=== PATIENT | female | born 1980 | race Caucasian/White ===

== ENCOUNTER 2022-03-08 15:17 | Outpatient (CLI) | payer BC, SELFPAY ==
--- NOTE | 2022-03-08 15:34 | XR_ITS ---
WS: [id number] XR chest 2V* [id number] REASON FOR EXAM: DYSPNEA, ACUTE COUGH FINDINGS: The heart and mediastinum are within normal limits. Calcified granulomatous disease in both hemithoraces. No acute pulmonary parenchymal or pleural abnormality is identified. Old healed rib fractures on the right. XR/XR chest 2V* [id number] IMPRESSION: No acute chest abnormality.
== END 2022-03-08 15:18 | disposition home or self-care (01) ==
PROVIDERS: PCP Family Medicine; Visit Provider Family Medicine
DX: R06.00 Dyspnea, unspecified (principal); R05.1 Acute cough
CPT/HCPCS: 71046

== ENCOUNTER 2022-11-06 20:00 | Emergency (ER) | payer BC, MEDICAID, SELFPAY ==
--- NOTE | 2022-11-06 20:03 | XRR_ITS ---
PROCEDURE INFORMATION: Exam: XR Chest Exam date and time: 11/06/2022 9:38 PM Age: 42 years old Clinical indication: Shortness of breath; Chest pressure; Patient HX: C/O chest pain with SOB. ; Additional info: Cp TECHNIQUE: Imaging protocol: Radiologic exam of the chest. Views: 1 view. COMPARISON: CR XR chest 2V* [id number] 03/08/2022 3:37 PM FINDINGS: Lungs: Streaky airspace opacities noted in the lower lungs, right greater than left, concerning for pneumonia. Atelectasis can have this appearance. Pleural spaces: Unremarkable. No pleural effusion. No pneumothorax. Heart/Mediastinum: Stable cardiomediastinal silhouette. Bones/joints: Old healed fracture deformities are again noted in the right lower lateral ribcage. XR/XR chest 1V portable [id number] IMPRESSION: Bibasilar atelectasis versus pneumonia. Clinical correlation is recommended.
--- NOTE | 2022-11-06 20:03 | ECG_ITS ---
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 Measurements Intervals [place] Rate: 92 P: 38 MN: 138 QRS: 38 QRSD: 82 T: 22 QT: 333 QTc: 412 Interpretive Statements SINUS RHYTHM NONSPECIFIC T-WAVE ABNORMALITY No previous ECG available for comparison Electronically Signed On 11-07-2022 14:21:34 COTTON SAMPLER by Orlando Shukla M.D. [email or web address]/store/[id number]
[2022-11-06 20:08] VITALS: BP 129/87; PULSE 87; RESP 17; TEMP 36.6; O2SAT 99; BMI 34.6
[2022-11-06 20:43] LABS: Basophils # 0.1 10^3/uL (0.0-0.1); Basophils % 0.9 %; Eosinophils # 0.4 10^3/uL (0.0-0.8); Eosinophils % 3.9 %; Hematocrit 41.3 % (37.0-47.0); Hemoglobin 13.4 g/dL (11.5-15.3); Lymphocytes # 3.2 10^3/uL (0.8-4.8); Lymphocytes % 29.1 %; Mean Corpuscular HGB Conc 32.4 g/dL (30.0-36.0); Mean Corpuscular Hemoglobin 30.5 pg (28.0-34.0); Mean Corpuscular Volume 94.1 fl (81-99); Mean Platelet Volume 9.4 fL (7.4-10.4); Monocytes # 1.2 10^3/uL (0.2-0.9); Monocytes % 10.3 %; Neutrophils # 6.19 10^3/uL (1.8-7.7); Neutrophils % 55.5 %; Nucleated Red Blood Cells % 0 %; Platelet Count 364 10^3/cmm (130-400); Red Blood Count 4.39 10^6/uL (4.1-5.3); Red Cell Distribution Width 13.2 % (12.1-15.1); White Blood Count 11.2 10^3/uL (4.0-10.0)
[2022-11-06 21:02] LABS: Troponin(5th) Baseline 6 ng/L (0-10)
[2022-11-06 21:03] LABS: Alanine Aminotransferase 26 U/L (0-33); Albumin Level 4.3 g/dL (3.5-5.2); Alkaline Phosphatase 87 U/L (35-105); Aspartate Amino Transferase 25 U/L (0-32); Blood Urea Nitrogen 16 mg/dL (6-20); Calcium 9.3 mg/dL (8.5-10.5); Carbon Dioxide 26 mmol/L (22-29); Chloride 99 mmol/L (98-107); Globulin 2.8 g/dL (1.3-4.6); Glomerular Filtration Rate 69.3 mL/min (90-130); Glucose 137 mg/dL (65-115); Osmolality Calculated 289 mOsm/kg (285-295); Sodium 138 mmol/L (136-145); Total Bilirubin 0.2 mg/dL (0.15-1.2); Total Protein 7.1 g/dL (6.6-8.7)
--- NOTE | 2022-11-06 22:03 | ECG_ITS ---
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 Measurements Intervals [place] Rate: 77 P: 42 PA: 141 QRS: 41 QRSD: 82 T: 43 QT: 368 QTc: 418 Interpretive Statements SINUS RHYTHM NONSPECIFIC T-WAVE ABNORMALITY Compared to ECG 11/06/2022 20:19:10 No significant changes Electronically Signed On 11-07-2022 16:19:31 ROTARY RIG ENGINE OPERATOR by Orlando Shukla M.D. [email or web address] behavioral healthcare of mississippiOricula Therapeuticsmercy health perrysburg hospitalLogan/store/OM/[id number]/[id number]
--- NOTE | 2022-11-06 22:11 | ED_ITS ---
HPI - Chest Pain General: Chief Complaint: Chest Pain Stated Complaint: CP, SOB, dizzy Time Seen by Provider: 11/06/22 22:10 History of Present Illness: 42-year-old female comes in today for complaints of some chest discomfort along with shortness of breath and dizziness. Patient was at work when this started. Patient denied any recent illness. Patient is a chronic smoker and coughs routinely. 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 Patient has a history of depression, anxiety disorder, nicotine dependence, and alcohol use disorder. Associated symptoms: Reports dyspnea; Deny nausea or vomiting Review of Systems Const: Reports: malaise Card: Reports: chest pain Resp: Reports: dyspnea GI: Denies: nausea, vomiting, diarrhea or constipation Musc: Denies: extremity pain Skin/Breast: Denies: rash Neuro: Reports: dizziness; Denies: headache(s) Psych: Denies: depression PFSH ED PFSH: Social History (Updated 01/26/21 @ 13:56 by Stevie Stevens LPN) Smoking and tobacco status: current every day smoker cigarettes Packs smoked per day: 1 Years cigarettes smoked: 8 Quit status (tobacco): has tried quititng Number of times tried to quit tobacco: 3 Second hand smoke exposure: No Current gender identity: Female Physical Exam Const: COMMON NORMALS: alert HENMT: COMMON NORMALS: normocephalic HEAD & SCALP: normocephalic THROAT: posterior oropharynx abnormal erythema Neck/C-Spine: COMMON NORMALS: full ROM Resp: COMMON NORMALS: normal respiratory effort AUSCULTATION: crackles (Bilateral bases) and rhonchi Cardio: COMMON NORMALS: regular rate RATE: regular rate Extremity: COMMON NORMALS: normal to inspection Neuro: SENSORIUM/ORIENTATION: Yes alert Skin: COMMON NORMALS: turgor normal GENERAL SKIN EXAM: turgor normal Course Vital Signs: Vital signs: Vital Signs Temperature 97.8 F 11/06/22 20:08 Pulse Rate 83 11/06/22 22:19 Respiratory Rate 18 11/06/22 22:19 Blood Pressure 115/92 11/06/22 22:19 Pulse Oximetry 96 11/06/22 22:19 Oxygen Delivery Me thod 11/06/22 22:19 MDM - Chest Pain Medical Decision Making 42-year-old female comes in today with some chest pressure, shortness of breath, and lightheadedness. On exam patient has rhonchi and crackles in the bases. Vital signs are normal. Skin is warm and dry. No edema is noted in the extremities. Differential diagnosis includes ACS, pneumonia, anxiety. Chest x- ray noted some bilateral lower lung atelectasis versus pneumonia. CBC had a white count of 11,000. Troponin was 6. EKG showed a sinus rhythm with no ectopy or ST elevation. Remainder of labs were unremarkable. Reviewed exam with patient recommended treatment for pneumonia. Patient was given doxycycline and a dose of dexamethasone in the ER. Patient was recommended continue doxycycline 100 mg twice a day for total of 7 days. Patient reported understanding and agreed to plan. Lab Data 11/06/22 20:25 11/06/22 20:25 Radiology Impressions Chest X-Ray 11/06/22 20:03 IMPRESSION: Bibasilar atelectasis versus pneumonia. Clinical correlation is recommended. Laboratory Results WBC 11.2 10^3/uL (4.0-10.0) H 11/06/22 20: RBC 4.39 10^6/uL (4.1-5.3) 11/06/22 20:25 Hgb 13.4 g/dL (11.5-15.3) 11/06/22 20:25 Hct 41.3 % (37.0-47.0) 11/06/22 20: MCV 94.1 fl (81-99) 11/06/22 20:25 MCH 30.5 pg (28.0-34.0) 11/06/22 20: MCHC 32.4 g/dL (30.0-36.0) 11/06/22 20:25 RDW 13.2 % (12.1-15.1) 11/06/22 20:25 Plt Count 364 10^3/cmm (130-400) 11/06/22 20: MPV 9.4 fL (7.4-10.4) 11/06/22 20:25 Neut % (Auto) 55.5 % 11/06/22 20:25 Lymph % (Auto) 29.1 % 11/06/22 20:25 Oliver % (Auto) 10.3 % 11/06/22 20:25 Eos % (Auto) 3.9 % 11/06/22 20:25 Baso % (Auto) 0.9 % 11/06/22 20:25 Neut # (Auto) 6.19 10^3/uL (1.8-7.7) 11/06/22 20:25 Lymph # (Auto) 3.2 10^3/uL (0.8-4.8) 11/06/22 20:25 Oliver # (Auto) 1.2 10^3/uL (0.2-0.9) H 11/06/22 20:25 Eos # (Auto) 0.4 10^3/uL (0.0-0.8) 11/06/22 20:25 Baso # (Auto) 0.1 10^3/uL (0.0-0.1) 11/06/22 20:25 Nucleated RBC % (auto) 0 % 11/06/22 20:25 Nucleated RBCs # 0.0 /100WBC 11/06/22 20:25 Sodium 138 mmol/L (136-145) 11/06/22 20:25 Potassium 4.0 mmol/L (3.5-5.1) 11/06/22 20:25 Chloride 99 mmol/L (98-107) 11/06/22 20:25 Carbon Dioxide 26 mmol/L (22-29) 11/06/22 20:25 Anion Gap 17.0 (5-19) 11/06/22 20:25 BUN 16 mg/dL (6-20) 11/06/22 20:25 Creatinine 0.9 mg/dL (0.5-0.9) 11/06/22 20:25 GFR Calculation 69.3 mL/min (90-130) L 11/06/22 20:25 Glucose 137 mg/dL (65-115) H 11/06/22 20:25 Calculated Osmolality 289 mOsm/kg (285-295) 11/06/22 20:25 Calcium 9.3 mg/dL (8.5-10.5) 11/06/22 20:25 Total Bilirubin 0.2 mg/dL (0.15-1.2) 11/06/22 20:25 AST 25 U/L (0-32) 11/06/22 20:25 ALT 26 U/L (0-33) 11/06/22 20:25 Alkaline Phosphatase 87 U/L (35-105) 11/06/22 20:25 Troponin T Baseline 6 ng/L (0-10) 11/06/22 20:25 Total Protein 7.1 g/dL (6.6-8.7) 11/06/22 20:25 Albumin 4.3 g/dL (3.5-5.2) 11/06/22 20:25 Globulin 2.8 g/dL (1.3-4.6) 11/06/22 20:25 Discharge Plan Discharge Patient Disposition: Home Clinical Impression: Pneumonia Qualifiers: Pneumonia type: due to unspecified organism Laterality: bilateral Lung location: lower lobe of lung Qualified Code(s): J18.9 - Pneumonia, unspecified organism Condition: Stable Prescriptions: New doxycycline monohydrate 100 mg capsule 100 mg PO BID 7 Days Qty: 14 0RF No Action trazodone 100 mg tablet 400 mg PO .HS PRN (Reason: insomnia) Qty: 120 2RF duloxetine [Cymbalta] 60 mg capsule,delayed release(DR/EC) 60 mg PO DAILY Qty: 30 2RF naltrexone 50 mg tablet 50 mg PO DAILY Qty: 30 2RF bupropion HCl [Wellbutrin XL] 150 mg tablet extended release 24 hr 150 mg PO QAM Qty: 30 2RF diphenhydramine HCl [Benadryl] 25 mg capsule 100 mg PO .HS PRN (Reason: sleep) Discharge Orders: Discharge ED (Routine); Ordered 11/06/22 Ordered By: Titi Lyman Referrals: Shawn Cheek MD [Primary Care Provider] - Discharge Diet: Usual diet Discharge Activity: Increase activity as tolerated Patient Instructions: Pneumonia (ED) Activity Restrictions/Additional Instructions: Take antibiotic as directed. Drink plenty of fluids. Use inhaler as needed for cough or shortness of breath. Follow-up with primary care in 1 week for recheck. Return to ED for worsening symptoms. Coding Level of Care Code ED Game Designer/Creative Director for Nicole Weeks
[2022-11-06 22:19] VITALS: BP 115/92; PULSE 83; RESP 18; O2SAT 96
[2022-11-06] MEDS: doxycycline 100 mg Tablet PO (22:24)
[2022-11-06] MEDS: dexamethasone 4 mg Tablet 10 MG PO (22:24)
== END 2022-11-06 22:28 | disposition home or self-care (01) ==
PROVIDERS: Emergency Medicine; Emergency Provider Nurse Practitioner Family; PCP Family Medicine
DX: J18.9 Pneumonia, unspecified organism (principal); F17.210 Nicotine dependence, cigarettes, uncomplicated
CPT/HCPCS: 36415; 71045; 80053; 84484; 85025; 93005; 99285; J8540

== ENCOUNTER 2023-09-19 10:32 | Emergency (ER) | payer BC, MEDICAID, SELFPAY ==
[2023-09-19 10:35] VITALS: BP 148/106; PULSE 107; RESP 18; TEMP 36.9; O2SAT 98; BMI 32.3
--- NOTE | 2023-09-19 10:37 | XRR_ITS ---
PROCEDURE INFORMATION: Exam: XR Chest Exam date and time: 09/19/2023 10:46 AM Age: 43 years old Clinical indication: Pain; Other: Unspecified; Additional info: Cp TECHNIQUE: Imaging protocol: Radiologic exam of the chest. Views: 1 view. COMPARISON: CR (CHEST, ) 11/06/2022 9:38 PM FINDINGS: Lungs: Unremarkable. No consolidation. Pleural spaces: Unremarkable. No pleural effusion. No pneumothorax. Heart/Mediastinum: Unremarkable. No cardiomegaly. Bones/joints: Nonacute right-sided rib fractures. XR/XR chest 1V portable [id number] IMPRESSION: No acute findings.
--- NOTE | 2023-09-19 10:38 | ED_ITS ---
HPI - Chest Pain 2 General: Chief Complaint: Chest Pain Stated Complaint: chest pains, sob, dissy Time Seen by Provider: 09/19/23 10:34 Source: patient Mode of arrival: ambulatory Limitations: no limitations History of Present Illness: 43-year-old female states that she has h ad some intermittent chest pain since this morning. States it has been a sharp pain in the center of her chest she denies any worsening improving factors. States the pain is made her get anxious does have a history of anxiety. She denies any cough denies any shortness of breath denies any vomiting or diarrhea. Associated symptoms: Deny abdominal pain, dyspnea, fever(s), nausea or vomiting Review of Systems 2 Const: Denies: fever(s), chills, body aches or change in appetite ENMT: Denies: throat pain or dental pain Card: Reports: chest pain Resp: Denies: dyspnea GI: Denies: abdominal pain, nausea, vomiting or diarrhea Musc: Denies: neck pain or back pain Skin/Breast: Denies: rash Neuro: Denies: headache(s) PFSH ED 2 PFSH: Social History Smoking and tobacco/nicotine status: current every day tobacco/nicotine user cigarettes Packs smoked per day: 1 Years cigarettes smoked: 8 Quit status (tobacco/nicotine): has tried quititng Number of times tried to quit tobacco: 3 Second hand smoke exposure: No Current gender identity: Female Physical Exam 2 Const: COMMON NORMALS: no acute distress, patient oriented x3 and healthy appearing HENMT: COMMON NORMALS: normocephalic and atraumatic HEAD & SCALP: n ormocephalic and atraumatic Eye: COMMON NORMALS: Equal, round and reactive pupils present and EOMs intact bilaterally PUPIL: Yes Equal, round and reactive pupils present Neck/C-Spine: COMMON NORMALS: full ROM and supple Chest: COMMONS NORMALS: normal inspection of the chest Resp: COMMON NORMALS: normal respiratory effort, No retractions, No use of accessory muscles and clear to auscultation bilaterally AUSCULTATION: clear to auscultation bilaterally Cardio: COMMON NORMALS: regular rate, regular rhythm and No murmurs present (Cardio) RATE: regular rate RHYTHM: regular rhythm Extremity: COMMON NORMALS: normal to inspection and full ROM Neuro: COMMON NORMALS: patient oriented x3, moves all extremities and no focal motor deficits Psych: COMMON NORMALS: mental status grossly normal, Normal thought process present and cooperative THOUGHT PROCESS: Normal thought process present Skin: COMMON NORMALS: no rashes or lesions noted and no wounds GENERAL SKIN EXAM: no rashes or lesions noted Course 2 Vital Signs: Vital signs: Vital Signs Temperature 98.4 F 09/19/23 10:35 Pulse Rate 73 09/19/23 12:40 Respiratory Rate 19 H 09/19/23 12:40 Blood Pressure 142/86 09/19/23 12:40 Pulse Oximetry 91 09/19/23 12:40 Oxygen Delivery Me thod Room Air 09/19/23 12:40 MDM - Chest Pain Medical Decision Making Patient presents here with chest pains atypical in nature blood work EKG are all normal her D-dimer is negative well she is stable for discharge she is to follow-up with her PCP and return if worsening. Medical Records I reviewed the patient's medical records. Lab Data I reviewed the patient's lab results. 09/19/23 10:59 09/19/23 10:59 Laboratory Results WBC 8.79 10^3/uL (3.29-11.43) 09/19/23 10:59 RBC 4.44 10^6/uL (3.85-5.65) 09/19/23 10:59 Hgb 13.60 g/dL (11.27-16.99) 09/19/23 10:59 Hct 42.4 % (36-47) 09/19/23 10:59 MCV 95.5 fl (85-98) 09/19/23 10:59 MCH 30.6 pg (27-33) 09/19/23 10:59 MCHC 32.1 g/dL (30-55) 09/19/23 10:59 RDW 13.0 % (12.1-15.1) 09/19/23 10:59 Plt Count 364 10^3/cmm (157-399) 09/19/23 10:59 MPV 9.1 fL (7.4-10.4) 09/19/23 10:59 Neut % (Auto) 59.5 % 09/19/23 10:59 Lymph % (Auto) 27.1 % 09/19/23 10:59 [place] % (Auto) 9.6 % 09/19/23 10:59 Eos % (Auto) 2.7 % 09/19/23 10:59 Baso % (Auto) 0.9 % 09/19/23 10:59 Neut # (Auto) 5.23 10^3/uL (1.8-7.7) 09/19/23 10:59 Lymph # (Auto) 2.4 10^3/uL (0.8-4.8) 09/19/23 10:59 [place] # (Auto) 0.8 10^3/uL (0.2-0.9) 09/19/23 10:59 Eos # (Auto) 0.2 10^3/uL (0.0-0.8) 09/19/23 10:59 Baso # (Auto) 0.1 10^3/uL (0.0-0.1) 09/19/23 10:59 Nucleated RBC % (auto) 0 % 09/19/23 10:59 Nucleated RBCs # 0.0 /100WBC 09/19/23 10:59 D-Dimer 0.46 ug/mLFEU (0-0.59) 09/19/23 10:59 Sodium 141 mmol/L (136-145) 09/19/23 10:59 Potassium 3.6 mmol/L (3.5-5.1) 09/19/23 10:59 Chloride 106 mmol/L (98-107) 09/19/23 10:59 Carbon Dioxide 25 mmol/L (22-29) 09/19/23 10:59 Anion Gap 13.6 (5-19) 09/19/23 10:59 BUN 11 mg/dL (6-20) 09/19/23 10:59 Creatinine 0.9 mg/dL (0.5-0.9) 09/19/23 10:59 GFR Calculation 69.0 mL/min (90-130) L 09/19/23 10:59 Glucose 97 mg/dL (65-115) 09/19/23 10:59 Calculated Osmolality 291 mOsm/kg (285-295) 09/19/23 10:59 Calcium 9.1 mg/dL (8.5-10.5) 09/19/23 10:59 Total Bilirubin 0.2 mg/dL (0.15-1.2) 09/19/23 10:59 AST 19 U/L (0-32) 09/19/23 10:59 ALT 21 U/L (0-33) 09/19/23 10:59 Alkaline Phosphatase 90 U/L (35-105) 09/19/23 10:59 Troponin T Baseline < 6 ng/L (0-10) 09/19/23 10:59 Troponin T 120 Minute 6.00 ng/L (0-10) 09/19/23 12:50 Delta Troponin T 0.67361 ABS# (0-10) 09/19/23 12:50 Total Protein 6.5 g/dL (6.6-8.7) L 09/19/23 10:59 Albumin 4.1 g/dL (3.5-5.2) 09/19/23 10:59 Globulin 2.4 g/dL (1.3-4.6) 09/19/23 10:59 Lipase 64 U/L (13-60) H 09/19/23 10:59 All radiology interpretation(s) finalized by discharge EKG Data EKG 1: I personally reviewed and interpreted this EKG as follows: EKG interpretation date: 09/19/23 EKG interpretation time: 10:39 Interpretation: sinus tach hr [address] or t wave abnormalities qrs 90 qtc 375 EKG 2: I personally reviewed and interpreted this EKG as follows: EKG interpretation date: 09/19/23 EKG interpretation time: 12:52 Interpretation: nsr hr [address] or t wave abnrmalities qrs 78 qtc 413 Discharge Plan Discharge Patient Disposition: Home Clinical Impression: Chest pain Qualifiers: Chest pain type: unspecified Qualified Code(s): R07.9 - Chest pain, unspecified Condition: Stable Prescriptions: No Action Lidocaine Pain Relief 4 % Adhesive Patch,Medicated 1 patch TOPICAL .ONE TIME USE Rx Instructions: on for 12 hours off for 12 hours fluoxetine 20 mg capsule 20 mg PO QAM Discharge Orders: Discharge ED (Routine); Ordered 09/19/23 Ordered By: Josie Vinson Referrals: Shawn Cheek MD [Primary Care Provider] - 1-3 days Discharge Diet: Advance as tolerated Discharge Activity: Resume usual activity Patient Instructions: Chest Pain (ED) Coding Level of Care Code ED Breakdown Man for Chg Micky
--- NOTE | 2023-09-19 10:39 | ECG_ITS ---
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 Measurements Intervals [place] Rate: 101 P: 36 MT: 129 QRS: 42 QRSD: 90 T: 32 QT: 317 QTc: 412 Interpretive Statements SINUS TACHYCARDIA NONSPECIFIC T-WAVE ABNORMALITY ABNORMAL RHYTHM ECG INTERPRETATION BASED ON A DEFAULT AGE OF 40 YEARS Compared to ECG 11/06/2022 22:21:53 Sinus rhythm no longer present T-wave abnormality still present Electronically Signed On 09-19-2023 21:48:46 SALES ENGAGEMENT MANAGER by Orlando Shukla M.D. [email or web address].[employer]/store/[id number] f
--- NOTE | 2023-09-19 10:46 | PC.PHAR ---
pt states she takes care of her own medications-pt states she is not always compliant with taking her prozac 20mg but states she did take it today 09/19/23-pt states she hasnt taken trazodone 400mg hs prn,naltrexone 50mg daily,cymbalta 60mg daily and wellbutrin xl 150mg qam in over a year-pt states she just grabbed a lidocaine patch this am as a one time thing trying to make her arm stop hurting
[2023-09-19] MEDS: aspirin 81 mg Chew Tablet 324 MG PO (10:47)
[2023-09-19 11:06] VITALS: BP 135/90; PULSE 88; RESP 17; O2SAT 96
[2023-09-19 11:07] LABS: Basophils # 0.1 10^3/uL (0.0-0.1); Basophils % 0.9 %; Eosinophils # 0.2 10^3/uL (0.0-0.8); Eosinophils % 2.7 %; Hematocrit 42.4 % (36-47); Lymphocytes # 2.4 10^3/uL (0.8-4.8); Lymphocytes % 27.1 %; Mean Corpuscular HGB Conc 32.1 g/dL (30-55); Mean Corpuscular Hemoglobin 30.6 pg (27-33); Mean Corpuscular Volume 95.5 fl (85-98); Mean Platelet Volume 9.1 fL (7.4-10.4); Monocytes # 0.8 10^3/uL (0.2-0.9); Monocytes % 9.6 %; Neutrophils # 5.23 10^3/uL (1.8-7.7); Neutrophils % 59.5 %; Nucleated Red Blood Cells % 0 %; Platelet Count 364 10^3/cmm (157-399); Red Blood Count 4.44 10^6/uL (3.85-5.65); White Blood Count 8.79 10^3/uL (3.29-11.43)
[2023-09-19 11:23] LABS: D Dimer 0.46 ug/mLFEU (0-0.59)
[2023-09-19] MEDS: LORazepam 2 mg/mL INJ 10 mL MDV 0.5 MG IVP (11:25)
[2023-09-19 11:26] LABS: Alanine Aminotransferase 21 U/L (0-33); Albumin Level 4.1 g/dL (3.5-5.2); Alkaline Phosphatase 90 U/L (35-105); Anion Gap 13.6 (5-19); Aspartate Amino Transferase 19 U/L (0-32); Blood Urea Nitrogen 11 mg/dL (6-20); Calcium 9.1 mg/dL (8.5-10.5); Carbon Dioxide 25 mmol/L (22-29); Chloride 106 mmol/L (98-107); Globulin 2.4 g/dL (1.3-4.6); Glucose 97 mg/dL (65-115); Lipase 64 U/L (13-60); Osmolality Calculated 291 mOsm/kg (285-295); Potassium 3.6 mmol/L (3.5-5.1); Sodium 141 mmol/L (136-145); Total Bilirubin 0.2 mg/dL (0.15-1.2); Total Protein 6.5 g/dL (6.6-8.7)
[2023-09-19 11:27] LABS: Troponin(5th) Baseline < 6 ng/L (0-10)
[2023-09-19] MEDS: nitroglycerin 0.4 mg sublingual Tablet SUBLINGUAL (11:54)
[2023-09-19 12:17] VITALS: BP 142/86; PULSE 77; RESP 12; O2SAT 92
[2023-09-19 12:40] VITALS: BP 142/86; PULSE 73; RESP 19; O2SAT 91
--- NOTE | 2023-09-19 12:52 | ECG_ITS ---
[facility] Test Date: 2023-09-19 Pat Name: Dayana Garrett Department: Room: Gender: Female Trade Marker: : 1980 Requested By: Josie Vinson Order Number: [id number] Jada MD: Orlando Shukla M.D. Measurements Intervals [place] Rate: 72 P: 35 AL: 143 QRS: 31 QRSD: 78 T: 41 QT: 389 QTc: 427 Interpretive Statements SINUS RHYTHM Compared to ECG 09/19/2023 10:39:43 Sinus tachycardia no longer present T-wave abnormality no longer present Electronically Signed On 09-20-2023 13:45:41 MEDICAL LAB DIRECTOR by Orlando Shukla M.D. [email or web address] river gulfportOrega Biotechohiohealth nelsonville health centerZolpy/store/OM/[id number]/[id number]
[2023-09-19 13:15] LABS: Troponin 5 2HR Delta 0.00001 ABS# (0-10)
[2023-09-19 13:37] VITALS: BP 142/86; PULSE 73; RESP 19; TEMP 36.9; O2SAT 91
== END 2023-09-19 13:38 | disposition home or self-care (01) ==
PROVIDERS: Emergency Provider Emergency Medicine; PCP Family Medicine
DX: R07.9 Chest pain, unspecified (principal); Z72.0 Tobacco use
CPT/HCPCS: 36415; 71045; 80053; 83690; 84484; 85025; 85378; 93005; 96374; 99285; J2060

== ENCOUNTER 2023-09-24 08:50 | Emergency (ER) | payer BC, MEDICAID, SELFPAY ==
[2023-09-24 08:54] VITALS: BP 141/88; PULSE 105; RESP 18; TEMP 36.7; O2SAT 100; BMI 32.3
--- NOTE | 2023-09-24 08:58 | XR_ITS ---
WS: [id number] Exam: XR chest 1V portable [id number] Date/Time of Exam: 09/24/2023 9:00 AM Reason For Exam: dyspnea/cough Comparison 09/19/2023. The lungs are clear and fully inflated. Normal cardiomediastinal silhouette. No pleural effusions. [place] structures are intact. At least 2 old RIGHT rib fractures are noted. IMPRESSION: 1. No acute cardiopulmonary finding. No change.
--- NOTE | 2023-09-24 08:58 | ECG_ITS ---
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 Measurements Intervals [place] Rate: 91 P: 43 [place]: 129 QRS: 49 QRSD: 86 T: 56 QT: 371 QTc: 458 Interpretive Statements SINUS RHYTHM NONSPECIFIC T-WAVE ABNORMALITY Compared to ECG 09/19/2023 12:52:10 T-wave abnormality now present Electronically Signed On 09-24-2023 19:35:26 OIL DERRICK OPERATOR by Orlando Shukla M.D. [email or web address] valley community hospitalImagekind/store/[id number] f
--- NOTE | 2023-09-24 08:59 | ED_ITS ---
HPI - Chest Pain 2 General: Chief Complaint: Chest Pain Stated Complaint: chest pain, dizzy Time Seen by Provider: 09/24/23 08:57 Source: patient Mode of arrival: ambulatory History of Present Illness: 43-year-old female presents to the emerg ency room with complaint of chest pressure she is having nausea. She did take meclizine rapid breathing she has some perioral send no carpopedal spasm. She has similar episode about. she is tachypneic there is no labored breathing. She has not had any palpitations. She has no history of any cardiac disease or arrhythmia MD complaint: chest pain Onset (ago): minute(s) Timing of current episode: episodic Prior episodes: Yes Onset: during rest Pain location: left chest Pain radiation: none Severity: mild Quality: heaviness Relieving factors: nothing Exacerbating factors: nothing Associated symptoms: Reports nausea and sense of impending doom; Deny abdominal pain, diaphoresis, dyspnea, fever(s), leg edema, palpitations, syncope or vomiting Treatment prior to arrival: none Review of Systems 2 Const: Denies: fever(s), chills or diaphoresis Card: Reports: chest pain; Denies: palpitations or syncope Resp: Denies: dyspnea GI: Reports: nausea; Denies: abdominal pain or vomiting : Denies: dysuria, urinary frequency or urinary urgency Musc: Denies: neck pain or back pain Skin/Breast: Denies: rash PFSH ED 2 PFSH: Social History Smoking and tobacco/nicotine status: current every day tobacco/nicotine user cigarettes Packs smoked per day: 1 Years cigarettes smoked: 8 Quit status (tobacco/nicotine): has tried quititng Number of times tried to quit tobacco: 3 Second hand smoke exposure: No Current gender identity: Female Physical Exam 2 Const: COMMON NORMALS: no acute distress GENERAL APPEARANCE: cooperative and comfortable ORIENTATION/CONSCIOUSNESS: Yes awake, Yes oriented to person, Yes oriented to place and Yes oriented to time HENMT: COMMON NORMALS: normocephalic, atraumatic and hearing grossly normal bilaterally HEAD & SCALP: normocephalic and atraumatic Resp: COMMON NORMALS: normal respiratory effort, No retractions, No use of accessory muscles and clear to auscultation bilaterally AUSCULTATION: clear to auscultation bilaterally Cardio: COMMON NORMALS: regular rate, regular rhythm and No murmurs present (Cardio) RATE: regular rate RHYTHM: regular rhythm GI: COMMON NORMALS: Soft to palpation and No hepatosplenomegaly present A USCULTATION: Yes normoactive bowel sounds PALPATION: Yes Soft to palpation, No Tenderness to palpation present (GI), No Guarding due to palpation present (GI) and Yes No hepatosplenomegaly present Extremity: COMMON NORMALS: normal to inspection, capillary refill normal, no clubbing, cyanosis or edema, no calf tenderness and no pedal edema Neuro: SENSORIUM/ORIENTATION: Yes oriented to person, Yes oriented to place and Yes oriented to time Skin: COMMON NORMALS: no rashes or lesions noted GENERAL SKIN EXAM: no rashes or lesions noted Course 2 Vital Signs: Vital signs: Vital Signs Temperature 98.1 F 09/24/23 08:54 Pulse Rate 82 09/24/23 10:00 Respiratory Rate 16 09/24/23 10:00 Blood Pressure 118/74 09/24/23 10:00 Pulse Oximetry 96 09/24/23 10:00 Oxygen Delivery Me thod Room Air 09/24/23 10:00 MDM - Chest Pain Medical Decision Making Labs and imaging reviewed chest x-ray normal EKG shows no acute changes. Acute anxiety attack with hyperventilation. Labs and imaging reviewed discussed with patient. In the past she has used alcohol to self medicate she has not been doing that recently she has been on Ativan in the past as well as Wellbutrin. She is off of those as well states she does not like with Ativan made her feel. Continue the fluoxetine gave her hydroxyzine to use every 6 hours as needed encouraged her to follow-up with her primary care doctor for long-term management of anxiety issues. Medical Records I reviewed the patient's medical records. Lab Data I reviewed the patient's lab results. 09/24/23 09:00 09/24/23 09:00 Laboratory Results WBC 10.25 10^3/uL (3.29-11.43) 09/24/23 09:00 RBC 4.40 10^6/uL (3.85-5.65) 09/24/23 09:00 Hgb 13.20 g/dL (11.27-16.99) 09/24/23 09:00 Hct 40.3 % (36-47) 09/24/23 09:00 MCV 91.6 fl (85-98) 09/24/23 09:00 MCH 30.0 pg (27-33) 09/24/23 09:00 MCHC 32.8 g/dL (30-55) 09/24/23 09:00 RDW 13.1 % (12.1-15.1) 09/24/23 09:00 Plt Count 387 10^3/cmm (157-399) 09/24/23 09:00 MPV 9.5 fL (7.4-10.4) 09/24/23 09:00 Neut % (Auto) 55.3 % 09/24/23 09:00 Lymph % (Auto) 28.6 % 09/24/23 09:00 [place] % (Auto) 12.6 % 09/24/23 09:00 Eos % (Auto) 2.6 % 09/24/23 09:00 Baso % (Auto) 0.6 % 09/24/23 09:00 Neut # (Auto) 5.67 10^3/uL (1.8-7.7) 09/24/23 09:00 Lymph # (Auto) 2.9 10^3/uL (0.8-4.8) 09/24/23 09:00 [place] # (Auto) 1.3 10^3/uL (0.2-0.9) H 09/24/23 09:00 Eos # (Auto) 0.3 10^3/uL (0.0-0.8) 09/24/23 09:00 Baso # (Auto) 0.1 10^3/uL (0.0-0.1) 09/24/23 09:00 Nucleated RBC % (auto) 0 % 09/24/23 09:00 Nucleated RBCs # 0.0 /100WBC 09/24/23 09:00 Specimen Type Arterial 09/24/23 09:07 Sample Site Radial, left 09/24/23 09:07 ABG pH 7.53 (7.35-7.45) H 09/24/23 09:07 ABG pCO2 26.3 mmHg (35-45) L 09/24/23 09:07 ABG pO2 102.0 mmHg (80.0-100.0) H 09/24/23 09:07 ABG PO2/FiO2 Ratio 0 09/24/23 09:07 ABG HCO3 21.8 mmol/L (22-26) L 09/24/23 09:07 ABG O2 Saturation 97.7 09/24/23 09:07 ABG Base Excess 0.3 mmol/L (-2.0-2.0) 09/24/23 09:07 Evangelist Test Pos 09/24/23 09:07 A-a O2 Gradient 1.9 mmHg (5-10) L 09/24/23 09:07 Hematocrit 40.8 % (37-47) 09/24/23 09:07 Hgb O2 Saturation 92.8 % (95-100) L 09/24/23 09:07 Carboxyhemoglobin 4.3 %THgb (0.4-20.1) 09/24/23 09:07 Methemoglobin 0.7 % (0.4-1.5) 09/24/23 09:07 Total Hemoglobin 13.3 g/dL (12-16) 09/24/23 09:07 Sodium 139.0 mmol/L (131-143) 09/24/23 09:07 Potassium 3.4 mmol/L (3.5-5.0) L 09/24/23 09:07 Glucose 114.0 mg/dL (70-115) 09/24/23 09:07 Ionized Calcium 1.1 mmol/L (1.1-1.4) 09/24/23 09:07 O2 Delivery Device Room air 09/24/23 09:07 FiO2 21.0 % 09/24/23 09:07 Boiler Operator ID Cak 09/24/23 09:07 Sodium 137 mmol/L (136-145) 09/24/23 09:00 Potassium 3.7 mmol/L (3.5-5.1) 09/24/23 09:00 Chloride 101 mmol/L (98-107) 09/24/23 09:00 Carbon Dioxide 23 mmol/L (22-29) 09/24/23 09:00 Anion Gap 16.7 (5-19) 09/24/23 09:00 BUN 13 mg/dL (6-20) 09/24/23 09:00 Creatinine 1.0 mg/dL (0.5-0.9) H 09/24/23 09:00 GFR Calculation 61.1 mL/min (90-130) L 09/24/23 09:00 Glucose 120 mg/dL (65-115) H 09/24/23 09:00 Calculated Osmolality 285 mOsm/kg (285-295) 09/24/23 09:00 Calcium 9.5 mg/dL (8.5-10.5) 09/24/23 09:00 Total Bilirubin 0.5 mg/dL (0.15-1.2) 09/24/23 09:00 AST 23 U/L (0-32) 09/24/23 09:00 ALT 22 U/L (0-33) 09/24/23 09:00 Alkaline Phosphatase 104 U/L (35-105) 09/24/23 09:00 Troponin T Baseline 7 ng/L (0-10) 09/24/23 09:00 Total Protein 6.9 g/dL (6.6-8.7) 09/24/23 09:00 Albumin 4.3 g/dL (3.5-5.2) 09/24/23 09:00 Globulin 2.6 g/dL (1.3-4.6) 09/24/23 09:00 All radiology interpretation(s) finalized by discharge Discharge Plan Discharge Patient Disposition: Home Clinical Impression: Anxiety, Hyperventilation Condition: Stable Prescriptions: New hydroxyzine HCl 25 mg tablet 25 mg PO QID PRN (Reason: anxiety) Qty: 20 0RF No Action meclizine 25 mg Tablet 25 mg PO .ONE TIME DOSE fluoxetine 20 mg capsule 20 mg PO QAM Discharge Orders: Discharge ED (Routine); Ordered 09/24/23 Ordered By: Sergio Szymanski Referrals: Shawn Cheek MD [Primary Care Provider] - Discharge Diet: Usual diet Discharge Activity: Increase activity as tolerated Patient Instructions: Hyperventilation (ED), Anxiety (ED), Opioid Safety, Pain Management Activity Restrictions/Additional Instructions: Thank you for choosing [facility] for your healthcare needs today. Please realize this is an emergency room and that we are providing you with a medical screening exam and this may not be complete and all inclusive of all the testing and or work up that you may need to determine your ailment or severity of your illness. It is very important that you follow up as instructed or that you return to the Emergency Department should you have concerns or if your condition changes or worsens in any way. Coding Level of Care Code ED Vehicle Damage Appraiser for Nicole Weeks
[2023-09-24 09:21] VITALS: BP 148/90; PULSE 104; RESP 16; O2SAT 100
[2023-09-24 09:21] LABS: ABG PCO2 26.3 mmHg (35-45); ABG PH Result 7.53 (7.35-7.45); Alveolar-Arterial Oxygen Gradi 1.9 mmHg (5-10); Arterial Blood Gas Hematocrit 40.8 % (37-47); Base Excess ABG 0.3 mmol/L (-2.0-2.0); Blood Gas Allen Test Pos; Blood Gas Operator Identificat CAK; Blood Gas Sample Site Radial, left; Blood Gas Sample Type Arterial; Carboxyhemoglobin 4.3 %THgb (0.4-20.1); HCO3 ABG 21.8 mmol/L (22-26); HGB O2 Sat 92.8 % (95-100); Ionized Calcium Level - ABG 1.1 mmol/L (1.1-1.4); Methemoglobin 0.7 % (0.4-1.5); Oxygen Device ROOM AIR; Oxygen Saturation ABG 97.7; PO2 FiO2 Ratio Arterial Blood 0; Potassium Level - ABG 3.4 mmol/L (3.5-5.0); Total Hemoglobin 13.3 g/dL (12-16)
[2023-09-24 09:23] LABS: Basophils # 0.1 10^3/uL (0.0-0.1); Basophils % 0.6 %; Eosinophils # 0.3 10^3/uL (0.0-0.8); Eosinophils % 2.6 %; Hematocrit 40.3 % (36-47); Lymphocytes # 2.9 10^3/uL (0.8-4.8); Lymphocytes % 28.6 %; Mean Corpuscular HGB Conc 32.8 g/dL (30-55); Mean Corpuscular Volume 91.6 fl (85-98); Mean Platelet Volume 9.5 fL (7.4-10.4); Monocytes # 1.3 10^3/uL (0.2-0.9); Monocytes % 12.6 %; Neutrophils # 5.67 10^3/uL (1.8-7.7); Neutrophils % 55.3 %; Nucleated Red Blood Cells % 0 %; Platelet Count 387 10^3/cmm (157-399); Red Cell Distribution Width 13.1 % (12.1-15.1); White Blood Count 10.25 10^3/uL (3.29-11.43)
[2023-09-24 09:45] VITALS: BP 132/72; PULSE 84; RESP 18; O2SAT 98
[2023-09-24 09:49] LABS: Alanine Aminotransferase 22 U/L (0-33); Albumin Level 4.3 g/dL (3.5-5.2); Alkaline Phosphatase 104 U/L (35-105); Anion Gap 16.7 (5-19); Aspartate Amino Transferase 23 U/L (0-32); Blood Urea Nitrogen 13 mg/dL (6-20); Calcium 9.5 mg/dL (8.5-10.5); Carbon Dioxide 23 mmol/L (22-29); Chloride 101 mmol/L (98-107); Globulin 2.6 g/dL (1.3-4.6); Glomerular Filtration Rate 61.1 mL/min (90-130); Glucose 120 mg/dL (65-115); Osmolality Calculated 285 mOsm/kg (285-295); Potassium 3.7 mmol/L (3.5-5.1); Sodium 137 mmol/L (136-145); Total Bilirubin 0.5 mg/dL (0.15-1.2); Total Protein 6.9 g/dL (6.6-8.7)
[2023-09-24 09:50] LABS: Troponin(5th) Baseline 7 ng/L (0-10)
[2023-09-24 10:00] VITALS: BP 118/74; PULSE 82; RESP 16; O2SAT 96
[2023-09-24] MEDS: LORazepam 2 mg Tablet PO (10:19)
== END 2023-09-24 10:36 | disposition home or self-care (01) ==
PROVIDERS: Emergency Provider Family Medicine; PCP Family Medicine
DX: F41.9 Anxiety disorder, unspecified (principal); R06.4 Hyperventilation
CPT/HCPCS: 36600; 71045; 80051; 80053; 82330; 82805; 84484; 85025; 93005; 99285

== ENCOUNTER 2025-06-01 20:22 | Emergency (ER) | payer OTHER, SELFPAY ==
--- NOTE | 2025-06-01 20:26 | ECG_ITS ---
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 Measurements Intervals [place] Rate: 133 P: 63 ID: [id number] QRS: 58 QRSD: 86 T: 46 QT: 332 QTc: 496 Interpretive Statements SINUS TACHYCARDIA NONSPECIFIC ST & T-WAVE ABNORMALITY ABNORMAL RHYTHM ECG Compared to ECG 09/24/2023 08:57:18 NO SIGNIFICANT CHANGE Electronically Signed On 06-02-2025 21:00:53 CDT by Sravan Hager M.D. [email or web address]
--- NOTE | 2025-06-01 20:27 | XRR_ITS ---
PROCEDURE INFORMATION: Exam: XR Chest Exam date and time: 06/01/2025 8:32 PM Age: 45 years old Clinical indication: Pain; Chest pressure; Additional info: Cp TECHNIQUE: Imaging protocol: Radiologic exam of the chest. Views: 1 view. COMPARISON: CR XR chest 1V portable [id number] 09/24/2023 9:05 AM FINDINGS: Lungs: Unremarkable. No consolidation. Pleural spaces: Unremarkable. No pleural effusion. No pneumothorax. Heart/Mediastinum: Unremarkable. No cardiomegaly. Bones/joints: Unremarkable. XR/XR chest 1V portable [id number] IMPRESSION: No acute findings.
[2025-06-01 20:28] VITALS: BP 136/92; PULSE 133; RESP 22; O2SAT 99; BMI 29.0
[2025-06-01 21:24] LABS: Hematocrit 44.4 % (36-47); Hemoglobin 14.90 g/dL (11.27-16.99); Mean Corpuscular HGB Conc 33.6 g/dL (30-55); Mean Corpuscular Hemoglobin 31.6 pg (27-33); Mean Corpuscular Volume 94.3 fl (85-98); Nucleated Red Blood Cells % 0 %; Platelet Count 329 10^3/cmm (157-399); Red Blood Count 4.71 10^6/uL (3.85-5.65); White Blood Count 7.24 10^3/uL (3.29-11.43)
--- NOTE | 2025-06-01 21:37 | W.ED.CHESTPA ---
HPI - Chest Pain General: Chief Complaint: Chest Pain Stated Complaint: Possible Heart attack Time Seen by Provider: 06/01/25 21:28 Source: patient Mode of arrival: ambulatory Limitations: no limitations History of Present Illness: 45-year-old female states that she had eaten chili tonight at 6 PM. Stated after she started having some chest pain she states that the pains been sharp in nature goes to both arms she states that she started feel little anxious as well she has been out of her fluoxetine for 2 weeks. She denies any shortness of breath. She denies any worse or improving factors states the pain is currently a 6 out of 10. She states she took Prilosec Tums and aspirin with no relief. Related Data Home Medications ?Medication ?Instructions ?Recorded ?Confirmed fluoxetine 20 mg capsule 20 mg PO QAM 09/19/23 10/19/24 meclizine 25 mg tablet 25 mg PO .ONE TIME DOSE 09/24/23 10/19/24 Previous Rx's ?Medication ?Instructions ?Recorded methocarbamol 500 mg tablet 500 mg PO TID shoulder strain #30 10/19/24 tabs Allergies Allergy/AdvReac Type Severity Reaction Status Date / Time No Known Allergies Allergy Verified 06/01/25 20:32 Review of Systems Card: Reports: chest pain [facility] ED PFSH: Medical History Strain of shoulder, right Social History Smoking and tobacco/nicotine status: never used tobacco/nicotine Quit status (tobacco/nicotine): has tried quititng Number of times tried to quit tobacco: 3 Second hand smoke exposure: No Current gender identity: Female Physical Exam Const: COMMON NORMALS: no acute distress, patient oriented x3 and healthy appearing HENMT: COMMON NORMALS: normocephalic and atraumatic HEAD & SCALP: normocephalic and atraumatic Eye: COMMON NORMALS: conjunctivae normal CONJUNCTIVA: Yes conjunctivae normal Neck/C-Spine: COMMON NORMALS: full ROM and supple Chest: COMMONS NORMALS: normal inspection of the chest Resp: COMMON NORMALS: normal respiratory effort, No retractions, No use of accessory muscles and clear to auscultation bilaterally AUSCULTATION: clear to auscultation bilaterally Cardio: COMMON NORMALS: regular rhythm and No murmurs present (Cardio) RATE: tachycardic RHYTHM: regular rhythm GI: COMMON NORMALS: Normal to inspection, nondistended, normoactive bowel sounds present, Soft to palpation, non-tender and no masses PALPATION: Yes Soft to palpation Extremity: COMMON NORMALS: normal to inspection and full ROM Neuro: COMMON NORMALS: patient oriented x3, moves all extremities and no focal motor deficits Psych: COMMON NORMALS: mental status grossly normal, Normal thought process present and cooperative THOUGHT PROCESS: Normal thought process present Skin: COMMON NORMALS: no rashes or lesions noted and no wounds GENERAL SKIN EXAM: no rashes or lesions noted Course Vital Signs: Vital signs: Vital Signs Pulse Rate 116 H 06/01/25 21:45 Respiratory Rate 22 H 06/01/25 20:28 Blood Pressure 150/96 06/01/25 21:45 Pulse Oximetry 99 06/01/25 21:45 Oxygen Delivery Me thod Room Air 06/01/25 21:45 MDM - Chest Pain Medical Decision Making 45-year-old female presents for chest pain is atypical in nature. Likely anxiety along with some reflux. Her initial troponin was normal she was tachycardic her heart rate is now the 90s after Ativan. She feels much improved after Ativan and GI cocktail her initial troponin was negative blood work and x-ray were normal as well. I did go over all of her findings with her. I did recommend a 2-hour troponin but she states she feels much improved like to go home at this time we will discharge her she is to follow-up with her PCP return if worsening she understands agrees to plan Medical Records I reviewed the patient's medical records. Lab Data I reviewed the patient's lab results. 06/01/25 21:08 06/01/25 21:08 Radiology Impressions Chest X-Ray 06/01/25 20:27 IMPRESSION: No acute findings. Laboratory Results WBC 7.24 10^3/uL (3.29-11.43) 06/01/25 21:08 RBC 4.71 10^6/uL (3.85-5.65) 06/01/25 21:08 Hgb 14.90 g/dL (11.27-16.99) 06/01/25 21:08 Hct 44.4 % (36-47) 06/01/25 21:08 MCV 94.3 fl (85-98) 06/01/25 21:08 MCH 31.6 pg (27-33) 06/01/25 21:08 MCHC 33.6 g/dL (30-55) 06/01/25 21:08 RDW 13.2 % (12.1-15.1) 06/01/25 21:08 Plt Count 329 10^3/cmm (157-399) 06/01/25 21:08 MPV 9.1 fL (7.4-10.4) 06/01/25 21:08 Neut % (Auto) 43.5 % 06/01/25 21:08 Lymph % (Auto) 36.2 % 06/01/25 21:08 [place] % (Auto) 14.4 % 06/01/25 21:08 Eos % (Auto) 4.7 % 06/01/25 21:08 Baso % (Auto) 1.1 % 06/01/25 21:08 Neut # (Auto) 3.15 10^3/uL (1.8-7.7) 06/01/25 21:08 Lymph # (Auto) 2.6 10^3/uL (0.8-4.8) 06/01/25 21:08 [place] # (Auto) 1.0 10^3/uL (0.2-0.9) H 06/01/25 21:08 Eos # (Auto) 0.3 10^3/uL (0.0-0.8) 06/01/25 21:08 Baso # (Auto) 0.1 10^3/uL (0.0-0.1) 06/01/25 21:08 Nucleated RBC % (auto) 0 % 06/01/25 21:08 Nucleated RBCs # 0.0 /100WBC 06/01/25 21:08 Sodium 142 mmol/L (136-145) 06/01/25 21:08 Potassium 4.2 mmol/L (3.5-5.1) 06/01/25 21:08 Chloride 104 mmol/L (98-107) 06/01/25 21:08 Carbon Dioxide 23 mmol/L (22-29) 06/01/25 21:08 Anion Gap 19.2 (5-19) H 06/01/25 21:08 BUN 12 mg/dL (6-20) 06/01/25 21:08 Creatinine 0.9 mg/dL (0.5-0.9) 06/01/25 21:08 GFR Calculation 68.3 mL/min (90-130) L 06/01/25 21:08 Glucose 83 mg/dL (65-115) 06/01/25 21:08 Calculated Osmolality 293 mOsm/kg (285-295) 06/01/25 21:08 Calcium 10.1 mg/dL (8.5-10.5) 06/01/25 21:08 Total Bilirubin 0.3 mg/dL (0.15-1.2) 06/01/25 21:08 AST 54 U/L (0-32) H 06/01/25 21:08 ALT 42 U/L (0-33) H 06/01/25 21:08 Alkaline Phosphatase 125 U/L (35-105) H 06/01/25 21:08 Troponin T Baseline < 6 ng/L (0-10) 06/01/25 21:08 Total Protein 7.0 g/dL (6.6-8.7) 06/01/25 21:08 Albumin 4.5 g/dL (3.5-5.2) 06/01/25 21:08 Globulin 2.5 g/dL (1.3-4.6) 06/01/25 21:08 Lipase 38 U/L (13-60) 06/01/25 21:08 All radiology interpretation(s) finalized by discharge EKG Data EKG 1: I personally reviewed and interpreted this EKG as follows: EKG interpretation date: 06/01/25 EKG interpretation time: 20:26 Interpretation: sinus tach hr [address] elevation qrs 86 qtc 410 EKG 2: I personally reviewed and interpreted this EKG as follows: EKG interpretation date: 06/01/25 EKG interpretation time: 22:33 Interpretation: nsr hr [address] elevation qrs 85 qtc 390 Clincial Decision Support The following clinical decision support tools were used to aid in care of the patient HEART Score -> History: Slightly Suspicous, EKG: Normal, Age: Less than 45 yrs, Risk Factors: No Risk Factors Known, Troponin: Baseline Trop <16 ng/L. Resulting HEART Score: 0. Discharge Plan Discharge Patient Disposition: Home Clinical Impression: Chest pain Condition: Stable Prescriptions: No Action methocarbamol 500 mg tablet 500 mg PO TID Qty: 30 0RF meclizine 25 mg Tablet 25 mg PO .ONE TIME DOSE fluoxetine 20 mg capsule 20 mg PO QAM Discharge Orders: Discharge ED (Routine); Ordered 06/01/25 Ordered By: Josie Vinson Referrals: Shawn Cheek MD [Primary Care Provider, [facility]] - 4-7 days Discharge Diet: Advance as tolerated Discharge Activity: Resume usual activity Patient Instructions: Chest Pain (ED) Print Language: Guamanian Coding Level of Care Code ED Director Game for Nicole Weeks
[2025-06-01] MEDS: lidocaine 2% viscous 15 ML, aluminum-mag hydrox-simethicon 30 ML, sucralfate oral liq 1 GM PO (21:40)
[2025-06-01 21:44] LABS: Troponin(5th) Baseline < 6 ng/L (0-10)
[2025-06-01 21:45] VITALS: BP 150/96; PULSE 116; O2SAT 99
[2025-06-01 21:47] LABS: Alanine Aminotransferase 42 U/L (0-33); Albumin Level 4.5 g/dL (3.5-5.2); Alkaline Phosphatase 125 U/L (35-105); Anion Gap 19.2 (5-19); Aspartate Amino Transferase 54 U/L (0-32); Blood Urea Nitrogen 12 mg/dL (6-20); Calcium 10.1 mg/dL (8.5-10.5); Carbon Dioxide 23 mmol/L (22-29); Chloride 104 mmol/L (98-107); Creatinine Clr Calc Pharmacy 86.8254; Globulin 2.5 g/dL (1.3-4.6); Glucose 83 mg/dL (65-115); Lipase 38 U/L (13-60); Osmolality Calculated 293 mOsm/kg (285-295); Potassium 4.2 mmol/L (3.5-5.1); Sodium 142 mmol/L (136-145); Total Protein 7.0 g/dL (6.6-8.7)
--- NOTE | 2025-06-01 22:33 | ECG_ITS ---
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 Measurements Intervals [place] Rate: 98 P: 33 SC: 132 QRS: 46 QRSD: 85 T: 45 QT: 335 QTc: 428 Interpretive Statements SINUS RHYTHM Compared to ECG 09/24/2023 08:57:18 NO SIGNIFICANT CHANGE Electronically Signed On 06-02-2025 22:11:27 CDT by Sravan Hager M.D. [id number] [id number]
[2025-06-01 22:47] VITALS: BP 139/93; PULSE 94; O2SAT 96
== END 2025-06-01 22:48 | disposition home or self-care (01) ==
PROVIDERS: Emergency Provider Emergency Medicine; PCP Family Medicine
DX: R07.9 Chest pain, unspecified (principal)
CPT/HCPCS: 36415; 71045; 80053; 83690; 84484; 85025; 93005; 99285; J9999

== ENCOUNTER 2025-08-22 11:53 | Emergency (ER) | payer OTHER, SELFPAY ==
[2025-08-22 11:55] VITALS: BP 133/86; PULSE 104; RESP 17; TEMP 36.6; O2SAT 95; BMI 29.7
--- NOTE | 2025-08-22 12:12 | USR_ITS ---
PROCEDURE INFORMATION: Exam: US Pelvis, Complete, Non-Obstetric Exam date and time: 08/22/2025 1:12 PM Age: 45 years old Clinical indication: Pelvic pain; Prior surgery; Surgery date: 6+ months; Surgery type: Unsure of dates but patient has had a c section and tubal ligation; Additional info: Severe suprapubic pain, vaginal bleeding, golf ball clots TECHNIQUE: Imaging protocol: Transabdominal pelvic nonobstetric ultrasound. Complete exam. Real time ultrasound with image documentation. COMPARISON: US abdomen complete* [id number] 02/18/2019 8:25 PM FINDINGS: Uterus: The uterus measures 5.1 x 6.5 x 11.4 centimeters and demonstrates a heterogeneous myometrial echotexture. The endometrium measures 1.3 centimeters. Within the lower uterine segment, there is a 1.4 x 1.4 x 1.8 centimeter hypoechoic structure with posterior acoustic enhancement and low-level internal echoes. This structure contains mobile echogenic material and demonstrates no internal vascularity on Doppler imaging, compatible with blood products or clot. Right ovary/adnexa: Not visualized. Left ovary/adnexa: Not visualized. Intraperitoneal space: No intraperitoneal free fluid. Urinary bladder: Normal. US/US pelv w/transvag [id number] IMPRESSION: 1. Thickened endometrium measuring 1.3 centimeters in the setting of abnormal uterine bleeding. Recommend gynecologic consultation and correlation with menstrual status. 2. Nonvascular hypoechoic structure within the lower uterine segment containing mobile echogenic material, most consistent with blood products or clot. 3. Bilateral ovaries not visualized on this examination.
--- NOTE | 2025-08-22 12:14 | ED_ITS ---
HPI - Abdominal Pain 2 General: Chief Complaint: Abdominal Pain Stated Complaint: R side abd pain through back, vaginal bleeding Time Seen by Provider: 08/22/25 11:58 Source: patient Mode of arrival: ambulatory Limitations: no limitations History of Present Illness: Patient is a 45-year-old female with past medical history of PCOS who presents emergency department complaining of severe right abdominal pain/suprapubic pain that began earlier today. Also is reporting profuse vaginal bleeding stating that she is passing golf ball size clots and this coincided with the pain. Pain radiates to the back, states it feels crampy and has been constant and severe since onset. She notes that she has not had her period since January of this year and that she just thought that she was perimenopausal. No history of endometriotic chest reports a history of PCOS and states that she has never had ruptured ovarian cyst in the past that she has been diagnosed with. Has never had this pain prior. No fevers or nausea/vomiting. No history of ectopic or ovarian torsion/tubo-ovarian abscess. Denying any urinary symptoms at this time or CVA tenderness. MD elicited complaint: abdominal pain Pertinent past history: other (pcos) Onset (ago): hour(s) Pain Consistency: constant Location: RLQ and Suprapubic Severity: severe Quality: cramping Radiation: back Associated Symptoms: Denies bloating, change in stool character, chills, constipation, diarrhea, dysuria, fever(s), hematochezia, nausea and vomiting Related Data Date of Last Menstrual Period: 01/07/25 Home Medications ?Medication ?Instructions ?Recorded ?Confirmed fluoxetine 20 mg capsule 20 mg PO QAM 09/19/23 meclizine 25 mg tablet 25 mg PO .ONE TIME DOSE 09/0910/19/24 Previous Rx's ?Medication ?Instructions ?Recorded methocarbamol 500 mg tablet 500 mg PO TID shoulder str ain #30 10/19/24 tabs hydrocodone 7.5 mg-acetaminophen 1 tab PO Q8H PRN pain #20 tabs 08/22/25 325 mg tablet norethindrone acetate 1.5 1 tab PO DAILY #63 tabs 08/09 01/01 mg-ethinyl estradiol 30 mcg tablet (Junel) ondansetron HCl 4 mg tablet 4 mg PO Q8H #30 tabs 08/22 Allergies Allergy/AdvReac Type Severity Reaction Status Date / Time No Known Allergies Allergy Verified 06/01/25 20:32 Review of Systems 2 General: Reports: 10 or more systems reviewed and unremarkable except in HPI and below Const: Denies: fever(s), chills, change in appetite, change in weight or diaphoresis ENMT: Denies: throat pain or hoarseness Card: Denies: chest pain, palpitations or lightheadedness Resp: Denies: dyspnea, productive cough or wheezing GI: Reports: abdominal pain; Denies: nausea, vomiting, diarrhea, constipation, bloating, change in stool character or hematochezia : Reports: vaginal bleeding and amenorrhea; Denies: flank pain, difficulty voiding, dysuria, urinary frequency or urinary urgency Musc: Reports: back pain; Denies: neck pain Skin/Breast: Denies: rash or new lesions Neuro: Denies: headache(s) or dizziness PFSH ED 2 PFSH: Medical History Strain of shoulder, right Social History Smoking and tobacco/nicotine status: never used tobacco/nicotine Quit status (tobacco/nicotine): has tried quititng Number of times tried to quit tobacco: 3 Second hand smoke exposure: No Current gender identity: Female Female Reproductive History: Date of last menstrual period: 01/07/25 Physical Exam 2 Const: COMMON NORMALS: patient oriented x3, no limitations, alert and well nourished GENERAL APPEARANCE: cooperative ORIENTATION/CONSCIOUSNESS: Yes awake OTHER: Tearful, anxious, nontoxic appearing Resp: COMMON NORMALS: normal respiratory effort, No retractions, No use of accessory muscles and clear to auscultation bilaterally AUSCULTATION: clear to auscultation bilaterally, no crackles, no rales, no rhonchi and no wheezes Cardio: COMMON NORMALS: regular rate, regular rhythm, No gallops present (Cardio), No clicks present (Cardio), No murmurs present (Cardio) and No rub (Cardio) RATE: regular rate RHYTHM: regular rhythm GI: COMMON NORMALS: Soft to palpation, No hepatosplenomegaly present and no masses AUSCULTATION: Yes normoactive bowel sounds PALPATION: Yes Soft to palpation, No Guarding due to palpation present (GI), No Rigid due to palpation and Yes No hepatosplenomegaly present RECTAL EXAM: deferred OTHER: Tender to palpation suprapubic region : COMMON NORMALS: Yes no CVA tenderness BLADDER/KIDNEY EXAM: Yes no CVA tenderness Back/Pelvis: COMMON NORMALS: no CVA tenderness Extremity: COMMON NORMALS: normal to inspection and full ROM Neuro: COMMON NORMALS: patient oriented x3, moves all extremities, no focal motor deficits and no sensory deficits noted SENSORIUM/ORIENTATION: Yes alert Psych: COMMON NORMALS: mental status grossly normal, cooperative and speech normal SPEECH: Yes normal speech Skin: COMMON NORMALS: no rashes or lesions noted GENERAL SKIN EXAM: no rashes or lesions noted Course 2 Vital Signs: Vital signs: Vital Signs Temperature 97.8 F 08/22/25 11:55 Pulse Rate 104 H 08/22/25 11:55 Respiratory Rate 22 H 08/22/25 13:02 Blood Pressure 133/86 08/22/25 11:55 Pulse Oximetry 98 08/22/25 13:02 Oxygen Delivery Me thod Room Air 08/22/25 11:55 MDM - Abdominal Pain Medical Decision Making Patient presented with suprapubic abdominal cramping and right sided abdominal pain that began suddenly today associated with back pain. Also this is associated with profuse vaginal bleeding states she is passing large golf ball size clots. Her last menstrual cycle was in January, she told me she believes she was just perimenopausal and this is why these had stopped. She has not any control medication. No fevers, nausea/vomiting, or any other concerning signs she was in acute distress on arrival secondary to her pain and anxiousness but overall nontoxic-appearing. Hemodynamically stable. She is not anemic with her lab work, overall her labs are reassuring and nondiagnostic. On pelvic/transvaginal ultrasound however there is a thickened endometrium measuring 1.3 cm, after consulting Dr. Lind, [employer], the thought is that this is anovulatory bleeding due to thickened/built-up endometrium since January and she is now shedding all at once causing the pain and bleeding. She will be started on and follow-up with [employer] in the clinic, ultimately stable for discharge home will send pain meds and nausea meds for home. Lab Data 08/22/25 12:17 08/22/25 12:17 Labs/Radiology: Radiology Impressions Pelvic/Transvag US 08/22/25 12:12 IMPRESSION: 1. Thickened endometrium measuring 1.3 centimeters in the setting of abnormal uterine bleeding. Recommend gynecologic consultation and correlation with menstrual status. 2. Nonvascular hypoechoic structure within the lower uterine segment containing mobile echogenic material, most consistent with blood products or clot. 3. Bilateral ovaries not visualized on this examination. Laboratory Results WBC 12.01 10^3/uL (3.29-11.43) H 08/22/25 12:17 RBC 4.55 10^6/uL (3.85-5.65) 08/22/25 12:17 Hgb 14.60 g/dL (11.27-16.99) 08/22/25 12:17 Hct 45.1 % (36-47) 08/22/25 12:17 MCV 99.1 fl (85-98) H 08/22/25 12:17 MCH 32.1 pg (27-33) 08/22/25 12:17 MCHC 32.4 g/dL (30-55) 08/22/25 12:17 RDW 12.9 % (12.1-15.1) 08/22/25 12:17 Plt Count 389 10^3/cmm (157-399) 08/22/25 12:17 MPV 9.0 fL (7.4-10.4) 08/22/25 12:17 Neut % (Auto) 62.5 % 08/22/25 12:17 Lymph % (Auto) 23.7 % 08/22/25 12:17 Sanborn % (Auto) 10.9 % 08/22/25 12:17 Eos % (Auto) 1.7 % 08/22/25 12:17 Baso % (Auto) 0.8 % 08/22/25 12:17 Neut # (Auto) 7.50 10^3/uL (1.8-7.7) 08/22/25 12:17 Lymph # (Auto) 2.9 10^3/uL (0.8-4.8) 08/22/25 12:17 Sanborn # (Auto) 1.3 10^3/uL (0.2-0.9) H 08/22/25 12:17 Eos # (Auto) 0.2 10^3/uL (0.0-0.8) 08/22/25 12:17 Baso # (Auto) 0.1 10^3/uL (0.0-0.1) 08/22/25 12:17 Nucleated RBC % (auto) 0 % 08/22/25 12:17 Nucleated RBCs # 0.0 /100WBC 08/22/25 12:17 Sodium 135 mmol/L (136-145) L 08/22/25 12:17 Potassium 4.0 mmol/L (3.5-5.1) 08/22/25 12:17 Chloride 98 mmol/L (98-107) 08/22/25 12:17 Carbon Dioxide 24 mmol/L (22-29) 08/22/25 12:17 Anion Gap 17.0 (5-19) 08/22/25 12:17 BUN 14 mg/dL (6-20) 08/22/25 12:17 Creatinine 1.0 mg/dL (0.5-0.9) H 08/22/25 12:17 GFR Calculation 60.5 mL/min (90-130) L 08/22/25 12:17 Glucose 111 mg/dL (65-115) 08/22/25 12:17 Calculated Osmolality 281 mOsm/kg (285-295) L 08/22/25 12:17 Calcium 9.4 mg/dL (8.5-10.5) 08/22/25 12:17 Total Bilirubin 0.5 mg/dL (0.15-1.2) 08/22/25 12:17 AST 26 U/L (0-32) 08/22/25 12:17 ALT 32 U/L (0-33) 08/22/25 12:17 Alkaline Phosphatase 106 U/L (35-105) H 08/22/25 12:17 Total Protein 7.4 g/dL (6.6-8.7) 08/22/25 12:17 Albumin 4.2 g/dL (3.5-5.2) 08/22/25 12:17 Globulin 3.2 g/dL (1.3-4.6) 08/22/25 12:17 HCG, Qual Negative (Negative) 08/22/25 12:17 Urine Color Dark yellow (Yellow) A 08/22/25 12:49 Urine Appearance Cloudy (CLEAR) A 08/22/25 12:49 Urine pH 5.0 (5-7) 08/22/25 12:49 Ur Specific Runge 1.044 (1.005-1.030) H 08/22/25 12:49 Urine Protein 1+ (Negative) A 08/22/25 12:49 Urine Glucose (UA) Negative (Normal) 08/22/25 12:49 Urine Ketones Trace (Negative) 08/22/25 12:49 Urine Blood 3+ (Negative) A 08/22/25 12:49 Urine Nitrate Negative (Negative) 08/22/25 12:49 Urine Bilirubin 1+ (Negative) H 08/22/25 12:49 Urine Urobilinogen 1.0 mg/dL (Negative) 08/22/25 12:49 Ur Leukocyte Esterase Negative (Negative) 08/22/25 12:49 Urine RBC 11-20 /hpf (0-2) H 08/22/25 12:49 Urine WBC 0-5 /hpf (0-5) 08/22/25 12:49 Ur Squamous Epith Cells 6-10 /hpf (0-5) 08/22/25 12:49 Calcium Oxalate Crystal 25-40 /hpf H 08/22/25 12:49 Amorphous Sediment Not Reportable 08/22/25 12:49 Urine Bacteria None seen /hpf (NONE) 08/22/25 12:49 Hyaline Casts 33.49 /lpf 08/22/25 12:49 Blood Type A Positive 08/22/25 12:17 Rho(D) Type Rh positive 08/22/25 12:17 All radiology interpretation(s) finalized by discharge Discharge Plan Discharge Patient Disposition: Home Clinical Impression: Anovulatory (dysfunctional uterine) bleeding Condition: Stable Prescriptions: New norethindrone ac-eth estradiol [ (21)] 1.5-30 mg-mcg tablet 1 tab PO DAILY Qty: 63 0RF ondansetron HCl 4 mg tablet 4 mg PO Q8H Qty: 30 0RF hydrocodone-acetaminophen 7.5-325 mg tablet 1 tab PO Q8H PRN (Reason: pain) Qty: 20 0RF No Action methocarbamol 500 mg tablet 500 mg PO TID Qty: 30 0RF meclizine 25 mg Tablet 25 mg PO .ONE TIME DOSE fluoxetine 20 mg capsule 20 mg PO QAM Discharge Orders: Discharge ED (Routine); Ordered 08/22/25 Ordered By: Maycol Chapman Referrals: Shawn Cheek MD [Primary Care Provider, [facility]] Patient Instructions: Patient Portal & Devi Instructions Activity Restrictions/Additional Instructions: Discharge Instructions Your Diagnosis You were diagnosed with anovulatory bleeding, which means irregular bleeding caused by hormonal changes in your menstrual cycle. This was confirmed by an ultrasound of your uterus. Your Medication You have been prescribed Junel (a control pill containing norethindrone acetate and ethinyl estradiol) to help regulate your bleeding. - Take one pill by mouth at the same time every day - Take the pills for 21 consecutive days, followed by 7 days without pills (or 7 placebo pills, depending on your pack) - Set a daily alarm to help you remember to take your pill at the same time each day - If you miss a pill, refer to the instructions in your medication package or call your supervisor furnace room What to Expect - Your bleeding should improve over the next few weeks as the medication regulates your cycle - You may experience some irregular bleeding or spotting during the first few months of treatment?this is normal and often improves with continued use - This medication also prevents , so you do not need additional control unless you miss pills - This medication does not protect against sexually transmitted infections Important Safety Information - Do not smoke while taking this medication, especially if you are over 35 years old, as smoking increases your risk of serious heart and blood vessel problems - The risk of blood clots is highest when you first start taking control pills - Contact your doctor immediately if you experience severe abdominal pain, chest pain, severe headaches, vision changes, or leg pain and swelling Follow-Up Care - Call the [facility] supervisor furnace room clinic to schedule an appointment?a referral has been placed for you --- - Keep this appointment even if your bleeding improves - Your specialist will monitor your response to treatment and determine if any additional evaluation or treatment is needed When to Seek Emergency Care Go to the emergency department or call 911 if you experience: - Heavy bleeding that soaks through more than one pad per hour for several hours - Severe dizziness or fainting - Chest pain or difficulty breathing - Severe leg pain or swelling - Sudden severe headache or vision changes Questions? If you have questions about your medication or symptoms before your specialist appointment, contact your supervisor furnace room's office. Print Language: Pashto Coding Level of Care Code ED Preflight Mechanic for Nicole Weeks
[2025-08-22 12:50] LABS: Alanine Aminotransferase 32 U/L (0-33); Albumin Level 4.2 g/dL (3.5-5.2); Alkaline Phosphatase 106 U/L (35-105); Anion Gap 17.0 (5-19); Aspartate Amino Transferase 26 U/L (0-32); Blood Urea Nitrogen 14 mg/dL (6-20); Calcium 9.4 mg/dL (8.5-10.5); Carbon Dioxide 24 mmol/L (22-29); Chloride 98 mmol/L (98-107); Globulin 3.2 g/dL (1.3-4.6); Glucose 111 mg/dL (65-115); Osmolality Calculated 281 mOsm/kg (285-295); Potassium 4.0 mmol/L (3.5-5.1); Sodium 135 mmol/L (136-145); Total Protein 7.4 g/dL (6.6-8.7)
[2025-08-22 12:52] LABS: Hematocrit 45.1 % (36-47); Hemoglobin 14.60 g/dL (11.27-16.99); Mean Corpuscular HGB Conc 32.4 g/dL (30-55); Mean Corpuscular Hemoglobin 32.1 pg (27-33); Mean Corpuscular Volume 99.1 fl (85-98); Nucleated Red Blood Cells % 0 %; Platelet Count 389 10^3/cmm (157-399); Red Blood Count 4.55 10^6/uL (3.85-5.65); White Blood Count 12.01 10^3/uL (3.29-11.43)
[2025-08-22 13:01] LABS: HCG, Serum Qual Negative (Negative)
[2025-08-22 13:02] VITALS: RESP 22; O2SAT 98
[2025-08-22] MEDS: ondansetron 2 mg/ML SDV 2 mL 4 MG IVP (13:02)
[2025-08-22] MEDS: morphine 4 mg/mL SDV 1 mL IVP (13:02)
[2025-08-22 13:05] LABS: Glucose Urine UA Negative (Normal); Nitrate Urine Negative (Negative)
[2025-08-22 13:10] LABS: Add Urine Microscopic? YES
[2025-08-22 13:38] LABS: Specific Gravity, Urine 1.044 (1.005-1.030)
--- NOTE | 2025-08-22 15:03 | PC.NURSE ---
Pt. refused fentanyl.
[2025-08-22 15:11] VITALS: BP 134/98; PULSE 82; O2SAT 98
== END 2025-08-22 15:12 | disposition home or self-care (01) ==
PROVIDERS: Emergency Provider Physician Assistant; PCP Family Medicine
DX: N97.0 Female infertility associated with anovulation (principal); Z87.891 Personal history of nicotine dependence
CPT/HCPCS: 36415; 76830; 76856; 80053; 81001; 84703; 85025; 86850; 86900; 87086; 96361; 96374; 96375; 99285; J2270; J2405; J7040

== ENCOUNTER → 2025-08-30 10:37 | Outpatient (BNVA) | payer OTHER, SELFPAY | PROVIDERS: PCP Family Medicine; Visit Provider Obstetrics & Gynecology | DX: N93.9 Abnormal uterine and vaginal bleeding, unspecified (principal) | CPT/HCPCS: 87624 ==

== ENCOUNTER 2025-09-08 07:22 | Outpatient (CLI) | payer OTHER, SELFPAY ==
--- NOTE | 2025-09-08 07:26 | US_ITS ---
WS: [id number] ULTRASOUND ABDOMEN CLINICAL INFORMATION: KIDNEY STONES FINDINGS: Technically difficult study due to bowel gas. Unable to hold breath. Liver Size: Mild hepatomegaly Craniocaudal length: 16.6 cm. Echogenicity: Normal. Surface nodularity: None. Mass (size and location): None. Main portal vein patent with antegrade flow Bile ducts Intrahepatic ducts: Normal. Common bile duct diameter: 0.3 cm. Gallbladder Normal. Gallstones: None. Gallbladder sludge: None. Gallbladder wall thickening: None. Pericholecystic fluid: None. Sonographic Nguyen sign: Absent. Pancreas Only partially visualized. Normal where visualized. Spleen difficult to visualize but appears normal Splenomegaly: None. Craniocaudal length: 10.0 cm. Right kidney: Normal. Hydronephrosis: None. Size: 11.2 cm x 4.9 cm x 5.7 cm Left kidney: Normal. Hydronephrosis: None. Size: 10.6 cm x 4.7 cm x 5.5 cm. Abdominal aorta and IVC Visualized portions are normal. Ascites: None. US/US abdomen complete* [id number] IMPRESSION:Technically difficult study due to bowel gas. Unable to hold breath. 1. Mild hepatomegaly. 2. Normal gallbladder. 3. Normal common bile duct. 4. No hydronephrosis in either kidney. No definite visualized renal parenchyma l calculi. 5. No other acute findings
== END 2025-09-08 07:23 | disposition home or self-care (01) ==
PROVIDERS: PCP Family Medicine; Visit Provider Internal Medicine
DX: N20.0 Calculus of kidney (principal); R16.0 Hepatomegaly, not elsewhere classified
CPT/HCPCS: 76700